=== PATIENT | male | born 1980 | race Hispanic/Latino ===

== ENCOUNTER 2025-05-26 17:41 | Emergency (ER) | payer OTHER ==
[~2025-05-26] VITALS: Ht 180.3 cm; Wt 86.2 kg
--- NOTE | 2025-05-26 17:51 | ERN ---
ED Note History of Present Illness Stated Complaint: FLULIKE SYMPTOMS Chief Complaint: Flu Symptoms Time Seen by MD: 17:43 Time Seen by Midlevel: 17:48 Dictation: 44-year-old male with no past medical history coming in with complaints of flu- like symptoms for the last two days. Patient states one of his coworkers also sick with similar symptoms. Patient states he has taken Tylenol at 5:00 a.m. and that is only medication he is taking. Denies having any nausea, vomiting, diarrhea, chest pain or chest discomfort. Denies any shortness the breath. Allergies: Coded Allergies: No Known Allergies (Unverified Allergy, Unknown, 05/26/25) Past Medical History Past Medical History: Diabetes-Type II, Hypertension, Liver Disease Surgical History: None Review of System Dictation Constitutional: Complaining of fever and generalized malaise Eyes: Negative for injury, pain,redness, and discharge ENT: Negative for injury,pain or swelling Cardiovascular: Negative for chest pain, palpitations, and edema Respiratory: Complaining of cough Abdomen/GI: Negative for abdominal pain, nausea, vomiting, diarrhea, and constipation Back: Negative for injury and pain : Negative for injury, bleeding and discharge MS/Extremity: Negative for injury and deformity Skin: Negative for rash, and discoloration Neuro: Negative for headache, weakness, numbness, tingling, and seizure Psych: Negative for suicide ideation, homicidal ideation, and hallucinations Review of Systems: was completed Initial Vital Sign VS Vital Signs Date Time Temp Pulse Resp B/P (MAP) Pulse Ox O2 Delivery O2 Flow Rate FiO2 05/26/25 17:43 100.2 128 20 153/99 Room Air Physical Exam Dictation General: awake, alert, NAD Head/Face: Normocephalic, atraumatic Eyes: PERRL, EOMI, vision at baseline ENT: oral cavity clear, TMs clear, no signs of infection Neck: Trachea midline, supple, no nuchal rigidity Cardiovascular: RRR, normal S1/S2, No MRGs, no JVD Respiratory: CTAB, no respiratory distress, No rales or wheezes Abdomen: Soft, non-tender, non-distended, normal bowel sounds, no guarding or rebound. Skin: Warm, dry, normal turgor, no rash MS/Extremity: Pulses equal, no cyanosis, neurovascular intact, FROM Neuro: COAx4, GCS 15, strength 5/5, CN 2-12 intact, normal cerebellar exam, normal gait, Psych: Normal behavior, mood, and affect normal Results (Laboratory/Radiology) Laboratory/Radiology Laboratory Tests Test 05/26/25 17:44 Influenza Type A Antigen Negative For Type A Influenza Type B Antigen Negative For Type B SARS-CoV-2, RNA, NAAT NEGATIVE SARS CoV-2 Group A Streptococcus Rapid negative (NEGATIVE) Labs Reviewed?: Yes ED Course ED Course Orders Procedure Category Date Status Time Covid Rna Naat LAB 05/26/25 Complete 17:48 Influenza Type A & B, LAB 05/26/25 Complete Rapid 17:48 Rapid (Group A Strep) LAB 05/26/25 Complete 17:48 0.9%Nacl 1000ml (Ns PHA 05/26/25 Complete 1000ml) 17:48 Acetaminophen 325 Tab PHA 05/26/25 Complete (Tylenol 325mg Tab 18:00 Ketorolac PHA 05/26/25 Complete Tromethamine 15mg/Ml 18:00 Benzonatate 100 Mg PHA 05/26/25 Complete Capsule (Tessalon 100 18:00 0.9%Nacl 1000ml (Ns PHA 05/26/25 In Process 1000ml) 18:53 Current Medications Medications (Trade) Dose Ordered Sig/Camelia Route PRN Reason Start Time Stop Time Status Last Admin Dose Admin Acetaminophen (TYLenol 325MG TAB) 650 mg ONCE ONCE PO 05/26/25 18:00 05/26/25 18:01 DC 05/26/25 18:03 Benzonatate (Tessalon 100mg Caps) 200 mg ONCE ONCE PO 05/26/25 18:00 05/26/25 18:01 DC 05/26/25 18:03 Ketorolac Tromethamine (toRADol) 15 mg ONCE ONCE IV 05/26/25 18:00 05/26/25 18:01 DC 05/26/25 18:03 Sodium Chloride 1,000 ml @ 1,000 mls/hr Q1H STAT IV 05/26/25 17:48 05/26/25 18:47 DC 05/26/25 18:02 Sodium Chloride 1,000 ml @ 1,000 mls/hr Q1H STAT IV 05/26/25 18:53 05/26/25 19:52 05/26/25 19:02 Vital Signs Date Time Temp Pulse Resp B/P (MAP) Pulse Ox O2 Delivery O2 Flow Rate FiO2 05/26/25 18:03 100.0 05/26/25 17:43 100.2 128 20 153/99 Room Air Medical Decision Making MDM MDM: 44-year-old male with no past medical history coming in with complaints of flu-like symptoms for the last two days. Patient states one of his coworkers also sick with similar symptoms. Patient states he has taken Tylenol at 5:00 a.m. and that is only medication he is taking. Denies having any nausea, vomiting, diarrhea, chest pain or chest discomfort. Denies any shortness the breath. Swabs are negative for COVID, flu, strep. Vital signs have improved. Heart rate is coming down after fluids. Patient states he feels slightly better. Discussed with the patient that he needs to take [id number] symptomatic control, take Tylenol or Motrin [id number] for fever control. Patient verbalized understanding, answered all questions. Differential diagnosis: Viral syndrome, COVID, flu, strep Rationale: Tests considered and ordered secondary to shared decision making include: Previous outside records reviewed: Old ER visits. Risk of complication and/or morbidity or mortality of patient management: None Medications-Per medication reconciliation Need for hospitalization: Patient does not meet criteria for hospitalization. Need for emergency major/minor surgery: No There are no social concerns with this patient. Prescription drug management Prescriptions will include symptomatic care Patient's prior external medical records from other ER visits were reviewed by me as indicated. Prior testing and results from previous visits were reviewed. Prior tests were taken into account with medical decision making and resource u tilization, independent historian/historians were used to obtain complete medical history. I independently interpreted the test that were performed, results were reviewed by me and considered findings on radiology if ordered. Medical management and examination interpretation discussions were had by me with other qualified healthcare professionals as indicated for the patient's ca re. DX & DISP Disposition: Discharge Departure Impression: Primary Impression: Viral syndrome Condition: Stable Additional Instructions: Tylenol or Motrin [id number] for fever control and generalized body aches. You can take [id number] Mucinex, Robitussin, for symptomatic control. Viral Syndrome can last from 7-10 days. Follow up with your primary doctor in 1-2 days. Return to the hospital if you have any worsening symptoms. Referrals: SELF,REFERRAL (PCP) Time of Disposition: 19:09 I have reviewed the case, and I agree with, Diagnosis and Plan OTONIEL [facility]AT[facility] May 26, 2025 17:51
[2025-05-26 18:01] LABS: RAPID GROUP A STREP negative (NEGATIVE)
[2025-05-26] MEDS: 0.9%NACL 1000ML 1,000 ML IV STA ×2 (18:02→19:02)
[2025-05-26 18:03] VITALS: TEMP 100
[2025-05-26] MEDS: BENZONATATE 100 MG CAPSULE PO ONE (18:03)
[2025-05-26 18:14] LABS: INFLUENZA TYPE A Negative For Type A (NEGATIVE); INFLUENZA TYPE B Negative For Type B (NEGATIVE)
[2025-05-26 18:19] LABS: SARS-CoV-2, RNA, NAAT NEGATIVE SARS CoV-2 (NEGATIVE)
[2025-05-26 19:57] VITALS: BP 133/71; PULSE 99; RESP 18; TEMP 100.1; O2SAT 98
== END 2025-05-26 20:00 | disposition home or self-care (01) ==
LOC: EDH 17:41
DX: B34.9 Viral infection, unspecified (principal); Z20.822 Contact with and (suspected) exposure to COVID-19; E11.9 Type 2 diabetes mellitus without complications; I10 Essential (primary) hypertension
CPT/HCPCS: 99283; 96374; 87635; 96361; 87880; 87804 ×2; J1885; J7030 ×2